=== PATIENT | male | born 1995 | race Caucasian/White ===

== ENCOUNTER 2018-05-07 02:23 | Emergency (ER) | payer SELFPAY ==
[2018-05-07 02:24] VITALS: BMI 23.6
[2018-05-07] MEDS ORDERED: Sodium Chloride 0.9% 500 ML IV ONE ×2 (03:19→03:28)
[2018-05-07] MEDS ORDERED: Iohexol 240 (50 ml) PO ONE ×2 (03:30→04:26)
[2018-05-07 03:32] LABS: BASO % 0.5 % (0.0-2.0); EOS # 0.2 K/uL (0.0-0.7); EOS % 2.5 % (0.0-4.0); LYMPH # 2.3 K/uL (1.0-4.3); LYMPH % 27.9 % (20.0-40.0); MEAN CELL VOLUME 82.1 fL (80.0-94.0); MEAN CORPUSCULAR HEMOGLOBIN 28.9 pg (27.0-31.0); MEAN CORPUSCULAR HGB CONC 35.2 g/dL (33.0-37.0); MEAN PLATELET VOLUME 8.8 fL (7.2-11.7); MONO # 0.6 K/uL (0.0-0.8); MONO % 7.1 % (0.0-10.0); NEUT # 5.2 K/uL (1.8-7.0); RBC 5.54 Mil/uL (4.40-5.90); WHITE BLOOD COUNT 8.3 K/uL (4.8-10.8)
[2018-05-07] MEDS ORDERED: Iohexol 240 (50 ml) ONE (03:34)
[2018-05-07 03:46] LABS: ALB/GLOB RATIO 1.5 (1.0-2.1); ALBUMIN 4.5 g/dL (3.5-5.0); ALT/SGPT 73 U/L (21-72); AST/SGOT 38 U/L (17-59); BLOOD UREA NITROGEN 11 mg/dL (9-20); CALCIUM 9.3 mg/dl (8.6-10.4); GFR NON-AFRICAN AMERICAN > 60; LIPASE 63 U/L (23-300)
--- NOTE | 2018-05-07 04:07 | C.PDOC ---
History Of Present Illness 23 year old male presents to the ED complaining of intermittent abdominal pain for the last 5 days. Associated symptoms include nausea, vomiting, loose stools , and subjective fever. Patient reports he felt bloated and with increased abdominal pain today, which prompted ER visit. He denies radiation of pain or urinary symptoms. Time Seen by Provider: 05/07/18 02:55 Chief Complaint (Nursing): Abdominal Pain History Per: Patient History/Exam Limitations: no limitations Onset/Duration Of Symptoms: Days Current Symptoms Are (Timing): Still Present Location Of Pain/Discomfort: Diffuse Radiation Of Pain To:: None Associated Symptoms: Fever, Nausea, Vomiting, Diarrhea. denies: Urinary Symptoms Past Medical History Reviewed: Historical Data, Nursing Documentation, Vital Signs Vital Signs: Last Vital Signs Temp 98.3 F 05/07/18 05:31 Pulse 86 05/07/18 05:31 Resp 16 05/07/18 05:31 BP 130/78 05/07/18 05:31 Pulse Ox 98 05/07/18 05:31 - Medical History PMH: Fractures (right arm) Other PMH: hydrocele Other Surgeries: Hx of surgery - [facility] Procedures EXCISION OF HYDROCELE (11/11/14) Family History: States: No Known Family Hx - Social History Hx Tobacco Use: No Hx Alcohol Use: No Hx Substance Use: No - Immunization History Hx Tetanus Toxoid Vaccination: No Hx Influenza Vaccination: No Hx Pneumococcal Vaccination: No Review Of Systems Except As Marked, All Systems Reviewed And Found Negative. Constitutional: Positive for: Fever Gastrointestinal: Positive for: Nausea, Vomiting, Abdominal Pain, Diarrhea Genitourinary: Negative for: Dysuria, Hematuria Physical Exam - Physical Exam Appears: Non-toxic Skin: Warm, Dry Head: Normacephalic Eye(s): bilateral: Normal Inspection Neck: Normal ROM Chest: Symmetrical Cardiovascular: Rhythm Regular Respiratory: Normal Breath Sounds, No Rales, No Rhonchi, No Wheezing Gastrointestinal/Abdominal: Bowel Sounds (Normal and active), Tenderness ( Diffuse), Distention, No Guarding, No Rebound Back: No CVA Tenderness Extremity: Normal ROM Neurological/Psych: Oriented x3, Normal Speech Gait: Steady ED Course And Treatment - Laboratory Results Result Diagrams: 05/07/18 03:29 05/07/18 03:29 O2 Sat by Pulse Oximetry: 96 (RA) Pulse Ox Interpretation: Normal - Other Rad AB/ Pelis CT X-Ray: Interpreted by Me, Viewed By Me Interpretation: No evidence of an acute abnormalities Progress Note: Patient treated with Pepcid, Zofran and IV fluids. Urine collected and sent to the lab for analysis. CT abd/pel ordered. Pt feels better post meds. comfortable, in no distress, labs and CT reviewed and d/w pt. Return instructions d/w pt who expressed understanding Reevaluation Time: 06:59 Reassessment Condition: Improved Disposition Counseled Patient/Family Regarding: Diagnosis, Need For Followup - Disposition Referrals: [facility] [Outside] Disposition: HOME/ ROUTINE Disposition Time: 06:57 Condition: STABLE Additional Instructions: Please follow up i clinic Clear liquid to soft diet NO solid foods or dairy for 24 hrs Return to ER if worse Prescriptions: Aluminum Hydroxide/Magnesium H [Maalox 30 ml] 30 ml PO TID #100 ml Polyethylene Glycol 3350 [Miralax] 17 gm PO DAILY #1 bottle Instructions: Acute Abdomen (Belly Pain), Adult (DC) Forms: [employer] (Occitan) Print Language: JAPANESE - Clinical Impression Clinical Impression: Abdominal pain - 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 - Scribe Statement The provider has reviewed the documentation as recorded by the Scribadriane Spence All medical record entries made by the Mindiibadriane were at my direction and personally dictated by me. I have reviewed the chart and agree that the record accurately reflects my personal performance of the history, physical exam, medical decision making, and the department course for this patient. I have also personally directed, reviewed, and agree with the discharge instructions and disposition.
[2018-05-07] MEDS ORDERED: Iodixanol 320 MG/ML 100 ML BOTTLE IV ONE (04:46)
[2018-05-07 05:31] VITALS: RESP 16; TEMP 98.3
[2018-05-07 05:44] LABS: URINE BILIRUBIN NEGATIVE (NEGATIVE); URINE BLOOD NEGATIVE (NEGATIVE); URINE CLARITY Clear (Clear); URINE COLOR Straw (YELLOW); URINE GLUCOSE (UA) NORMAL (Normal); URINE LEUKOCYTE ESTERASE NEG Leu/uL (Negative); URINE PROTEIN NEGATIVE (NEGATIVE); URINE UROBILINOGEN NORMAL mg/dL (0.2-1.0)
[2018-05-07 07:09] VITALS: BP 125/76; PULSE 85
--- NOTE | 2018-05-07 10:32 | CT ---
Date of service: 05/07/2018 PROCEDURE: CT Abdomen and Pelvis with contrast HISTORY: abd pain COMPARISON: CT scan of the abdomen and pelvis dated 03/23/2016 TECHNIQUE: Contrast dose: 100 mL Visipaque 320 Radiation dose: Total exam DLP = 41.3 mGy-cm. This CT exam was performed using one or more of the following dose reduction techniques: Automated exposure control, adjustment of the mA and/or kV according to patient size, and/or use of iterative reconstruction technique. FINDINGS: LOWER THORAX: Unremarkable. LIVER: Unremarkable. No gross lesion or ductal dilatation. GALLBLADDER AND BILE DUCTS: Unremarkable. PANCREAS: Unremarkable. No gross lesion or ductal dilatation. SPLEEN: Unremarkable. ADRENALS: Unremarkable. No mass. KIDNEYS AND URETERS: Unremarkable. No hydronephrosis. No solid mass. VASCULATURE: Unremarkable. No aortic aneurysm. BOWEL: Unremarkable. No obstruction. No gross mural thickening. APPENDIX: Normal appendix. PERITONEUM: Unremarkable. No free fluid. No free air. LYMPH NODES: Prominent clustered lymph nodes in the right lower quadrant/mesenteric. BLADDER: Unremarkable. REPRODUCTIVE: Unremarkable. BONES: No acute fracture. OTHER FINDINGS: None. IMPRESSION: Findings suggestive of mesenteric adenitis. ER notification submitted electronically.
[2018-05-08 00:30] VITALS: O2SAT 96
== END 2018-05-07 07:09 | disposition home or self-care (01) ==
LOC: C.ER 02:23
DX: R10.9 Unspecified abdominal pain (principal)
CPT/HCPCS: 74177; 80053; 81001; 83690; 85025; 96374; 96375; 99285; J2405; J7040; Q9966; Q9967